=== PATIENT | male | born 2000 | race Caucasian/White ===

== ENCOUNTER 2020-06-07 17:55 | Emergency (ER) | payer SELFPAY ==
[2020-06-07 17:59] VITALS: BP 143/79; PULSE 82; RESP 18; TEMP 37.1; O2SAT 97; BMI 29.5
--- NOTE | 2020-06-07 18:40 | ED_ITS ---
HPI - General Adult General: Chief complaint: General Medical Stated complaint: HAVING PAIN IN R UPPER EXTREMITY SINCE IV 1 WK AGO Time Seen by Provider: 06/07/20 18:00 Source: patient Mode of arrival: ambulatory Limitations: no limitations History of Present Illness: HPI narrative: 19-year-old male patient presents to the emergency department with several complaints. He reports carried a heavy load of dishes yesterday while at work. Reports could barely carry the tray, states someone stepped in front of him causing him to fall. He reports dropped the dishes on the floor. He is complaining of left upper extremity pain today. He also reports history of recent CT scan, completed approximately 7 days ago, with IV contrast due to abdominal pain completed at [facility]. He is wondering if his upper extremity pain today is related to the IV medication he received at the hospital. He reports IV was located in the left upper arm. He states is an [employer] student, not doing well in school, continues to work lots of hours. Employed at [employer]. He reports large amount of anxiety with intention of contacting behavioral health for help past 4 weeks. He denies suicidal/homicidal ideations plans or thoughts. He reports history of anxiety for many years, reports anxiety attacks that are occurring more frequently. Onset (ago): day(s) (1) Location: upper extremity Radiation: back (left) and neck (left) Severity: moderate Severity scale (1-10): 4 Quality: aching and dull Pain Consistency: intermittent Relieving factors: rest Exacerbating factors: medication Associated symptoms: Reports no associated symptoms; Deny chest pain, diaphoresis, dyspnea, headache(s) (worse since school/stress, denies ESPINOZA currently), nausea, rash, palpitations or vomiting Treatments prior to arrival: none Review of Systems General: Reports: 10 or more systems reviewed and unremarkable except in HPI and below Const: Denies: fever(s), chills or diaphoresis Eyes: Denies: blurry vision or eye redness ENMT: Denies: throat pain, dental pain or disequilibrium Card: Denies: chest pain, palpitations or irregular heart rhythm Resp: Denies: dyspnea, productive cough, non-productive cough or wheezing GI: Denies: abdominal pain, nausea or vomiting : Denies: dysuria Musc: Reports: extremity pain; Denies: back pain, joint stiffness or limited range of motion Skin/Breast: Denies: rash or pruritus Neuro: Denies: headache(s), weakness in extremities or behavioral changes Psych: Reports: anxiety and difficulty concentrating; Denies: depression, sleeping more, hopelessness, irritability, visual hallucinations, auditory hallucinations, suicidal ideation or homicidal ideation Ashu/Lymph: Denies: easy bruising PFSH ED PFSH: Social History Smoking and tobacco status: never smoked Physical Exam Const: COMMON NORMALS: no acute distress, patient oriented x3, healthy appearing and alert GENERAL APPEARANCE: cooperative, comfortable and well hydrated HENMT: COMMON NORMALS: normocephalic, Normal external nose present and moist oral mucous membranes HEAD & SCALP: normocephalic NOSE: Normal external nose present Eye: COMMON NORMALS: Equal, round and reactive pupils present and EOMs intact bilaterally GENERAL EYE: appearance normal, both eyes and all related structures PUPIL: Yes Equal, round and reactive pupils present Neck/C-Spine: COMMON NORMALS: full ROM and no lymphadenopathy GENERAL: Yes normal visual inspection and Yes trachea midline CERVICAL SPINE: Yes cervical ROM normal Lymph: LYMPHATIC: no lymphadenopathy noted Chest: COMMONS NORMALS: normal inspection of the chest CHEST: Yes Symmetrical chest wall rise and Yes tenderness other (soft tissue left mid- anterior chest wall, mid-lateral chest wall, pain reproduced with palpation) Resp: COMMON NORMALS: normal respiratory effort and clear to auscultation bilaterally AUSCULTATION: clear to auscultation bilaterally Cardio: COMMON NORMALS: regular rhythm, S1 normal heart sound present, S2 normal heart sound present and Peripheral pulses 2+ throughout RHYTHM: regular rhythm HEART SOUNDS: S1 normal heart sound present and S2 normal heart sound present PERIPHERAL PULSES: Peripheral pulses 2+ throughout GI: COMMON NORMALS: Normal to inspection, nondistended, normoactive bowel sounds present, Soft to palpation and non-tender INSPECTION: Yes normal to inspection PALPATION: Yes Soft to palpation : COMMON NORMALS: Yes no CVA tenderness BLADDER/KIDNEY EXAM: Yes no CVA tenderness Back/Pelvis: COMMON NORMALS: no CVA tenderness, thoracic and lumbar spine normal to inspection, no thoracic nor lumbar tenderness, thoraco-lumbar ROM normal and straight leg raise negative bilaterally Extremity: COMMON NORMALS: normal to inspection and capillary refill normal GENERAL: Yes normal exam except as noted RIGHT UPPER EXTREMITY: Yes shoulder joint (soft tissue tenderness anterior and posterior) Right shoulder: Yes Right shoulder joint inspection exam (normal), Yes palpation, Yes Right shoulder joint ROM exam (full w/o deficit) and Yes Right shoulder joint neurovascular exam (distally intact), Yes upper arm Right upper arm: Yes inspection (normal), Yes palpation (without pain), Yes neurovascular exam (distally intact) and Yes other (no visualization of erythema, tracking, edema or puncture wound) and Yes elbow joint (normal) Right elbow: Yes inspection, Yes palpation (not able to produce tenderness, pronation/supination intact), Yes neurovascular exam (distally intact) and Yes other EXTREMITY IMAGE (BACK): 1. Soft tissue tenderness present, reproducible pain to the posterior scapula, Neuro: COMMON NORMALS: patient oriented x3 and no focal motor deficits SENSORIUM/ORIENTATION: Yes alert SPEECH: speech normal GAIT: Yes Normal gait present MOTOR EXAM: 5/5 motor strength present throughout Psych: COMMON NORMALS: mental status grossly normal, Normal thought process present and cooperative ACTIVITY/MOTOR BEHAVIOR: Yes appropriate eye contact THOUGHT PROCESS: Normal thought process present Skin: COMMON NORMALS: no rashes or lesions noted and turgor normal GENERAL SKIN EXAM: no rashes or lesions noted and turgor normal Course ED course: 19-year-old male patient presents to the emergency department with muscle strain of the left upper extremity. He was concerned IV contrast received approx 1 week prior could correlate with pain he is experiencing. I was not able to appreciate thrombophlebitis or DVT clinical symptoms to the left upper extremity upon exam. Exam consistent with muscle strain. We discussed anxiety symptoms and need for follow-up with behavioral health. He agrees to follow-up and has an action plan with help from his counselor at [facility]. Hydroxyzine given to help with sleep and anxiety symptoms. Is aware this is for short-term treatment only. Prescription of cyclobenzaprine and ibuprofen provided for muscle strain symptoms. He agrees to return to the emergency department if he develops suicidal or homicidal ideations thoughts or plans, depression symptoms. Vital Signs: Vital signs: Vital Signs Temperature 98.8 F 06/07/20 17:59 Pulse Rate 82 06/07/20 17:59 Respiratory Rate 18 06/07/20 17:59 Blood Pressure 143/79 06/07/20 17:59 Pulse Oximetry 97 06/07/20 17:59 Discharge Plan Discharge Patient Disposition: Home Clinical Impression: Anxiety Muscle strain of left upper extremity Qualifiers: Encounter type: initial encounter Qualified Code(s): S46.912A - Strain of unspecified muscle, fascia and tendon at shoulder and upper arm level, left arm, initial encounter Condition: Stable Prescriptions: New IBU 800 mg tablet 800 mg PO TID PRN (Reason: pain) Qty: 30 RF: 0 cyclobenzaprine 10 mg tablet 10 mg PO TID PRN (Reason: muscle spasm) Qty: 15 RF: 0 hydroxyzine HCl 25 mg tablet 25 mg PO Q6H PRN (Reason: anxiety) Qty: 14 RF: 0 Discharge Orders: Discharge Order (Routine); Ordered 06/07/20 Ordered By: Pari Dang Referrals: Bolivar Booth FNP [Primary Care Provider] - Discharge Diet: Usual diet Discharge Activity: Limit activity as instructed Patient Instructions: Muscle Strain (ED), Musculoskeletal Pain (ED), Anxiety (ED) Activity Restrictions/Additional Instructions: Apply warm compresses/cool compresses alternating, several times daily for pain Do not drive with use of cyclobenzaprine Contact student services for counseling with behavioral health tomorrow Take hydroxyzine as needed, may cause drowsiness. Avoid heavy lifting of the left upper extremity until improved. Return to the emergency department if you develop vomiting, fever or other concerning symptoms Return to the emergency department if you develop weakness of the bilateral hands/arms , inability to feel your arms or increased pain of the left upper extremity. 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
--- NOTE | 2020-06-08 15:33 | DCPLANNER ---
Addendum entered by Anna Ross 06/09/20 11:14: Patient returned family caseworker phone call. mergers and acquisitions manager spoke with patient, case loader operator informed him that he could go to [facility] and fill out the initial paperwork between the hours of 7:30 and 3 Monday thru Monday. mergers and acquisitions manager also told patient, that case loader operator would call [facility] and have Michaelle Moe to look for his paperwork, so that a phone assessment could be scheduled for patient. Patient stated that he would go and fill out the paperwork. mergers and acquisitions manager called [facility], spoke with Michaelle, was told that she would look for patients paperwork and would get him scheduled as soon as she could. Original Note: mergers and acquisitions manager had message to speak with patient about getting established with a primary care physician, and about services at [facility]. mergers and acquisitions manager called [phone], unable to speak with patient at this time, a voice mail was left for patient to return family caseworker phone call.
== END 2020-06-07 19:23 | disposition home or self-care (01) ==
PROVIDERS: Emergency Provider Nurse Practitioner Family; PCP Nurse Practitioner Family
DX: S46.912A Strain of unspecified muscle, fascia and tendon at shoulder and upper arm level, left arm, initial encounter (principal); F41.9 Anxiety disorder, unspecified; X50.0XXA Overexertion from strenuous movement or load, initial encounter
CPT/HCPCS: 12345; 99281

== ENCOUNTER 2022-06-01 10:59 | Inpatient (IN) | payer BC, MEDICAID, SELFPAY ==
[2022-06-01 11:33] VITALS: BMI 28.6
[2022-06-01 11:36] VITALS: BP 124/77; PULSE 89; RESP 17; TEMP 36.8; O2SAT 98
[2022-06-01] MEDS: hyDROXYzine 25 mg Capsule 50 MG PO (11:52)
[2022-06-01 14:00] VITALS: BP 115/75; PULSE 80; RESP 15; TEMP 36.8; O2SAT 98
[2022-06-01] MEDS: trazodone 50 mg Tablet PO (20:22)
[2022-06-01 22:00] VITALS: BP 117/72; PULSE 64; RESP 18; TEMP 36.9; O2SAT 96
[2022-06-02 06:00] VITALS: BP 117/72; PULSE 64; RESP 18; TEMP 36.9; O2SAT 96
[2022-06-02 06:36] VITALS: BP 128/79; PULSE 86; RESP 15; TEMP 36.4; O2SAT 98
[2022-06-02] MEDS: hyDROXYzine 25 mg Capsule 50 MG PO (07:55)
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
[2022-06-02 14:00] VITALS: BP 127/55; PULSE 99; RESP 17; TEMP 36.7; O2SAT 99
[2022-06-02] MEDS: trazodone 50 mg Tablet PO ×2 (20:13→22:12)
[2022-06-02] MEDS: famotidine 20 mg Tablet PO (21:48)
[2022-06-02 22:00] VITALS: BP 127/55; PULSE 99; RESP 17; TEMP 36.7; O2SAT 99
[2022-06-02 22:41] VITALS: BP 140/78; PULSE 99; RESP 16; TEMP 36.6; O2SAT 97
[2022-06-03 06:00] VITALS: BP 100/62; PULSE 74; RESP 15; TEMP 36.4; O2SAT 97
--- NOTE | 2022-06-03 08:20 | PC.NURSE ---
Patient denies SI/HI and AVH this morning. Patient identifies as she and will be referred to as such throughout the rest of this note. She states her head feels clearer because it is easier to think in here. Patient is incredibly intelligent and talked about going to college for computer programming and talked extensively about formulas, artificial intelligence, and many other things about her studies. Patient is calm and cooperative this morning.
[2022-06-03] MEDS: escitalopram 10 mg Tablet 20 MG PO (12:58)
[2022-06-03 14:00] VITALS: BP 119/75; PULSE 93; RESP 18; TEMP 36.4; O2SAT 97
--- NOTE | 2022-06-03 15:18 | W.PM.NPUPNS ---
Subjective NPU Subjective: Patient presented today reporting that things were going okay. She she endorsed that it has been a significant struggle essentially hiding her reality from her parents with whom she lives. Also there was a discussion about her having a possibly year-long supply of transitioning supplements in route to her address as well as a limited supply among other things in a locked box at the house. We had a lengthy discussion about the danger of self medicating with prescription medications. And she agreed that she would seek out a licensed practitioner moving forward with any issues surrounding transitioning. Additionally she agreed to increasing the Lexapro to 20 mg p.o. every morning after discussion of the risks, benefits and alternatives of the medication. Mental Status Exam MSE Comments: This is a overweight white transfemale with hospital scrubs on with limited grooming and eye contact. No abnormal movements except for mild psychomotor retardation. Cooperative with exam in mild distress. Speech was more spontaneous but normal rate and slightly decreased volume. Mood described as depressed, affect congruent. Thought process mostly organized. Thought content: Patient denied homicidal ideation but reported recent suicidal ideation, there were no delusions reported but she appeared guarded and somewhat odd, there were no auditory or visual hallucinations reported at this time but she reports a history there of. Attention and concentration were intact and memory appeared somewhat reliable but none were formally tested. She is alert and oriented x3. Insight and judgment are impaired and impulse control is impaired. Vitals/I&O/Wt Last Vital Signs Temp 97.6 F 06/03/22 14:00 Pulse 93 06/03/22 14:00 Resp 18 06/03/22 14:00 BP 119/75 06/03/22 14:00 Pulse Ox 97 06/03/22 14:00 O2 Del Method 06/03/22 06:00 A&P Assessment and plan (1) Generalized anxiety disorder with panic attacks: (2) Major depression, chronic: (3) History of autism: Plan This is a 21-year-old white transfemale with a history of autism, depression and anxiety who presents after recent reported overdose attempt x2. 1. Continue current medication. Increased Lexapro to 20 mg p.o. every morning. 2. Continue every 15 minute checks for safety. 3. Encourage individual, group and milieu therapies. 4. Obtain collateral information. Involuntary Hold Information 96 Hour Hold: 96 Hour Involuntary Admission: No Attestations NPU Medical Necessity Statement*: Inpatient hospitalization is medically necessary and the clinically appropriate intervention at this time. We will monitor/initiate medications and make changes as indicated. Likely to stay 3-5 days. Coding Level of Care Code Acute Frontload Driver for Chg Fwd Diagnoses Generalized anxiety disorder with panic attacks F41.1; F41.0 Major depression, chronic F32.9 History of autism Z86.59
[2022-06-03] MEDS: trazodone 50 mg Tablet PO (20:10)
[2022-06-03 20:24] VITALS: BP 123/78; PULSE 91; RESP 18; O2SAT 97
[2022-06-04 06:00] VITALS: BP 119/74; PULSE 61; RESP 16; O2SAT 99
[2022-06-04] MEDS: escitalopram 10 mg Tablet 20 MG PO (08:07)
--- NOTE | 2022-06-04 08:28 | W.PM.NPUPNS ---
Subjective NPU Subjective: Patient presented today reporting that he feels better partially due to the medications medically and partly due to that being another transgendered individual in the hospital to commiserate with. He denied any side effects medication and we agreed we work with the treatment team on Monday for coping referrals. We spent a significant amount of time importance of having well-trained treatment practitioners involved in any transitioning prescriptions or treatments. Mental Status Exam MSE Comments: This is a overweight white transfemale with hospital scrubs on with limited grooming and eye contact. No abnormal movements except for mild psychomotor retardation. Cooperative with exam in mild distress. Speech was more spontaneous but normal rate and slightly decreased volume. Mood described as a little better, affect congruent. Thought process mostly organized. Thought content: Patient denied homicidal ideation but reported recent suicidal ideation, there were no delusions reported but she appeared guarded and somewhat odd, there were no auditory or visual hallucinations reported at this time but she reports a history there of. Attention and concentration were intact and memory appeared somewhat reliable but none were formally tested. She is alert and oriented x3. Insight and judgment are impaired and impulse control is impaired. Vitals/I&O/Wt Last Vital Signs Temp 97.6 F 06/03/22 14:00 Pulse 61 06/04/22 06:00 Resp 16 06/04/22 06:00 BP 119/74 06/04/22 06:00 Pulse Ox 99 06/04/22 06:00 O2 Del Method 06/03/22 06:00 A&P Assessment and plan (1) Generalized anxiety disorder with panic attacks: (2) Major depression, chronic: (3) History of autism: Plan This is a 21-year-old white transfemale with a history of autism, depression and anxiety who presents after recent reported overdose attempt x2. 1. Continue current medication. Increased Lexapro to 20 mg p.o. every morning. 2. Continue every 15 minute checks for safety. 3. Encourage individual, group and milieu therapies. 4. Obtain collateral information. 5. Work with treatment team for appropriate referrals especially regarding HRT. Involuntary Hold Information 96 Hour Hold: 96 Hour Involuntary Admission: No Attestations NPU Medical Necessity Statement*: Inpatient hospitalization is medically necessary and the clinically appropriate intervention at this time. We will monitor/initiate medications and make changes as indicated. Likely to stay 2 to 4 days. Coding Level of Care Code Acute Road Supervisor Of Engines for Chg Fwd Diagnoses Generalized anxiety disorder with panic attacks F41.1; F41.0 Major depression, chronic F32.9 History of autism Z86.59
[2022-06-04] MEDS: docusate sodium 100 mg Capsule 200 MG PO (09:49)
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
[2022-06-04 14:00] VITALS: BP 132/80; PULSE 90; RESP 20; TEMP 36.7; O2SAT 90
[2022-06-04 20:11] VITALS: BP 123/67; PULSE 102; RESP 18; TEMP 36.9; O2SAT 93
[2022-06-04] MEDS: trazodone 50 mg Tablet PO (20:32)
[2022-06-05 06:00] VITALS: BP 113/59; PULSE 80; RESP 18; TEMP 36.5; O2SAT 94
[2022-06-05] MEDS: escitalopram 10 mg Tablet 20 MG PO (08:41)
[2022-06-05 14:00] VITALS: BP 125/62; PULSE 69; RESP 18; TEMP 36.7; O2SAT 96
--- NOTE | 2022-06-05 16:47 | P.NPUPN_ITS ---
Subjective NPU Subjective: Patient resents today reporting that things are changed medically. His parents came to visit and was identified that they knew about his transgender status. He reports that his needs the now likely has a place to go home to but he is feeling anxious about not being home to have some level co ntrol over the narrative about his transgender status. We discussed the meeting with the treatment team tomorrow to make sure he has appropriate services in place to try to deal with his mental health as well as possible transitioning follow-up. Mental Status Exam MSE Comments: This is a overweight white transfemale with hospital scrubs on with limited grooming and eye contact. No abnormal movements except for mild psychomotor retardation. Cooperative with exam in mild distress. Speech was more spontaneous and normal rate and volume. Mood described as a little better, affect congruent. Thought process mostly organized. Thought content: Patient denied homicidal or suicidal ideation, there were no delusions reported or noted and there were no auditory or visual hallucinations reported at this time. Attention and concentration were intact and memory appeared somewhat reliable but none were formally tested. She is alert and oriented x3. Insight and judgment are limited and impulse control is limited, but improving. Vitals/I&O/Wt Last Vital Signs Temp 97.7 F 06/05/22 06:00 Pulse 80 06/05/22 06:00 Resp 18 06/05/22 06:00 BP 113/59 06/05/22 06:00 Pulse Ox 94 06/05/22 06:00 O2 Del Method 06/04/22 14:00 Weight last 48 hrs Weight 96.706 kg A&P Assessment and plan (1) Generalized anxiety disorder with panic attacks: (2) Major depression, chronic: (3) History of autism: Plan This is a 21-year-old white transfemale with a history of autism, depression and anxiety who presents after recent reported overdose attempt x2. 1. Continue current medication. Increased Lexapro to 20 mg p.o. every morning. 2. Continue every 15 minute checks for safety. 3. Encourage individual, group and milieu therapies. 4. Obtain collateral information. 5. Work with treatment team for appropriate referrals especially regarding HRT. Involuntary Hold Information 96 Hour Hold: 96 Hour Involuntary Admission: No Attestations NPU Medical Necessity Statement*: Inpatient hospitalization is medically necessary and the clinically appropriate intervention at this time. We will monitor/initiate medications and make changes as indicated. Likely to stay 1-3 days. Coding Level of Care Code Acute Motion Graphics Artist for Chg Fwd Diagnoses Generalized anxiety disorder with panic attacks F41.1; F41.0 Major depression, chronic F32.9 History of autism Z86.59
[2022-06-05 20:06] VITALS: BP 115/64; PULSE 61; RESP 17; TEMP 36.8; O2SAT 97
[2022-06-05] MEDS: trazodone 50 mg Tablet PO (20:27)
[2022-06-06 06:00] VITALS: BP 123/72; PULSE 74; RESP 18; O2SAT 100
[2022-06-06] MEDS: escitalopram 10 mg Tablet 20 MG PO (07:20)
[2022-06-06 14:00] VITALS: BP 127/75; PULSE 84; RESP 16; TEMP 36.6; O2SAT 98
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
[2022-06-06 16:07] VITALS: BP 127/75; PULSE 84; RESP 16; TEMP 36.6; O2SAT 98
== END 2022-06-06 17:05 | disposition home or self-care (01) | DRG 880 ==
PROVIDERS: Admitting Provider Psychiatry & Neurology Psychiatry; PCP Family Medicine; Visit Provider Psychiatry & Neurology Psychiatry
DX: F41.1 Generalized anxiety disorder (principal); R45.851 Suicidal ideations; F41.0 Panic disorder [episodic paroxysmal anxiety]; F32.9 Major depressive disorder, single episode, unspecified; F84.0 Autistic disorder; F64.0 Transsexualism; Z91.51 Personal history of suicidal behavior
CPT/HCPCS: 97150; 97165

== ENCOUNTER → 2022-08-05 09:09 | Outpatient (BNVA) | payer BC, SELFPAY | PROVIDERS: PCP Family Medicine; Visit Provider Family Medicine | DX: F64.9 Gender identity disorder, unspecified (principal); F41.1 Generalized anxiety disorder; F41.0 Panic disorder [episodic paroxysmal anxiety]; F32.9 Major depressive disorder, single episode, unspecified | CPT/HCPCS: 80053; 80061; 84146; 84443; 85025 ==

== ENCOUNTER 2022-08-30 14:25 | Inpatient (IN) | payer BC, SELFPAY ==
[2022-08-30 14:27] VITALS: BP 130/64; PULSE 82; RESP 16; TEMP 36.9; O2SAT 96; BMI 30.2
--- NOTE | 2022-08-30 14:45 | ED.C_ITS ---
Documented by User: ANGELA Davidson 08/30/22 16:20 HPI - Psych General: Chief Complaint: Psychiatric Symptoms Stated Complaint: anxiety/MHE Time Seen by Provider: 08/30/22 14:30 Source: patient Mode of arrival: EMS Limitations: no limitations History of Present Illness: Patient is a 22-year-old male with a history of anxiety, depression, and gender dysphoria (biologically male but identifies as female-would like to be referred to [facility]) here for complaints of suicidal ideations and severe anxiety. Patient states he is on Lexapro 20mg daily but does admit to not taking this medication regularly. He states he is having suicidal thoughts with a plan to overdose on medications. He tells me he recently locked up all of his medications because he does not feel safe from myself . Patient reports approximately 1-2 weeks ago he tried to overdose on medications/alcohol but states he miscalculated and did not take a lethal amount. Patient states he is having debilitating anxiety. States he recently had a falling out with a friend/confidant and now feels alone. MD complaint: suicidal ideation, feels depressed and other (anxiety) Onset (ago): day(s) Duration: constant History of same: Yes Context: recent alcohol abuse, not taking psychiatric medications and significant life stressor Associated psychiatric symptoms: depression and suicidal ideation Associated symptoms: Reports depression and suicidal ideation Treatments prior to arrival: none If self harm: admits thoughts of self harm Review of Systems Const: Denies: fever(s) or chills Card: Denies: chest pain, palpitations, lightheadedness or syncope Resp: Denies: dyspnea GI: Denies: abdominal pain, nausea, vomiting or diarrhea Skin/Breast: Denies: rash Neuro: Denies: headache(s) Psych: Reports: anxiety, depression, panic attacks and suicidal ideation PFS ED PFSH: Medical History Psychiatric care Family History Grandfather Stroke Grandmother Cancer skin Father Hypertension Mother Meniere's disease Social History Smoking and tobacco status: never smoked Second hand smoke exposure: No Smoking risk assessment/counseling performed?: No Alcohol intake: former Desire information about alcohol rehabilitation?: No Counseling given: No Desire information about substance/drug rehabilitation?: No Counseling given: No Physical Exam Const: COMMON NORMALS: no acute distress, average body habitus, patient oriented x3, no limitations, healthy appearing, alert and well nourished GENERAL APPEARANCE: cooperative ORIENTATION/CONSCIOUSNESS: Yes awake, Yes oriented to person, Yes oriented to place and Yes oriented to time Resp: COMMON NORMALS: normal respiratory effort and clear to auscultation bilaterally AUSCULTATION: clear to auscultation bilaterally Cardio: COMMON NORMALS: regular rate and regular rhythm RATE: regular rate RHYTHM: regular rhythm Neuro: MONA COMA SCALE: document GCS findings Mona coma scale eye opening: Spontaneous Mona coma scale verbal response: Orientated Mona coma scale motor response: Obey commands [place] coma scale total score: 15 COMMON NORMALS: patient oriented x3 SENSORIUM/ORIENTATION: Yes alert, Yes oriented to person, Yes oriented to place and Yes oriented to time Psych: COMMON NORMALS: mental status grossly normal, Normal thought process present, cooperative, activity/motor behavior normal, denies hallucinations and denies homicidal ideation APPEARANCE: Yes grossly normal ATTITUDE: Yes calm ACTIVITY/MOTOR BEHAVIOR: No psychomotor agitation and Yes Avoids eye contact (attititude/behavior) SPEECH: Yes slow MOOD & AFFECT: Yes depressed mood and Yes Flat affect present THOUGHT PROCESS: Normal thought process present ATTENTION/CONCENTRATION: Yes attention grossly intact and Yes concentration grossly intact MEMORY/COGNITION: Yes memory grossly intact and Yes cognition grossly intact INSIGHT: Good insight present (Psych) JUDGEMENT: Good judgement present (Psych) Course ED course: Affidavit placed on chart. Plan will be to admit to [facility] pending bed availability. Consultations: Consultation #1: Dr. Portillo-accepts to NPU Vital Signs: Vital signs: Vital Signs Temperature 98.4 F 08/30/22 14:27 Pulse Rate 82 08/30/22 14:27 Respiratory Rate 16 08/30/22 14:27 Blood Pressure 130/64 08/30/22 14:27 Pulse Oximetry 96 08/30/22 14:27 Oxygen Delivery Me thod 08/30/22 14:27 MDM - Psych Medical Decision Making Patient will be admitted to NPU per Dr. Portillo. Lab Data 08/30/22 11:55 08/30/22 11:55 Laboratory Results WBC 10.2 10^3/uL (4.0-10.0) H 08/30/22 11:55 RBC 5.55 10^6/uL (4.1-5.3) H 08/30/22 11:55 Hgb 16.7 g/dL (11.7-16.6) H 08/30/22 11:55 Hct 49.0 % (42.0-52.0) 08/30/22 11:55 MCV 88.3 fl (80-94) 08/30/22 11:55 MCH 30.1 pg (28.0-34.0) 08/30/22 11:55 MCHC 34.1 g/dL (30.0-36.0) 08/30/22 11:55 RDW 11.2 % (12.1-15.1) L 08/30/22 11:55 Plt Count 240 10^3/cmm (130-400) 08/30/22 11:55 MPV 10.2 fL (7.4-10.4) 08/30/22 11:55 Neut % (Auto) 72.7 % 08/30/22 11:55 Lymph % (Auto) 20.0 % 08/30/22 11:55 [place] % (Auto) 5.7 % 08/30/22 11:55 Eos % (Auto) 0.5 % 08/30/22 11:55 Baso % (Auto) 0.5 % 08/30/22 11:55 Neut # (Auto) 7.44 10^3/uL (1.8-7.7) 08/30/22 11:55 Lymph # (Auto) 2.1 10^3/uL (0.8-4.8) 08/30/22 11:55 [place] # (Auto) 0.6 10^3/uL (0.2-0.9) 08/30/22 11:55 Eos # (Auto) 0.1 10^3/uL (0.0-0.8) 08/30/22 11:55 Baso # (Auto) 0.1 10^3/uL (0.0-0.1) 08/30/22 11:55 Nucleated RBC % (auto) 0 % 08/30/22 11:55 Nucleated RBCs # 0.0 /100WBC 08/30/22 11:55 Sodium 137 mmol/L (136-145) 08/30/22 11:55 Potassium 3.7 mmol/L (3.5-5.1) 08/30/22 11:55 Chloride 99 mmol/L (98-107) 08/30/22 11:55 Carbon Dioxide 28 mmol/L (22-29) 08/30/22 11:55 Anion Gap 13.7 (5-19) 08/30/22 11:55 BUN 13 mg/dL (6-20) 08/30/22 11:55 Creatinine 0.8 mg/dL (0.7-1.2) 08/30/22 11:55 GFR Calculation 120.9 mL/min (90-130) 08/30/22 11:55 Glucose 93 mg/dL (65-115) 08/30/22 11:55 Calculated Osmolality 284 mOsm/kg (285-295) L 08/30/22 11:55 Calcium 9.4 mg/dL (8.5-10.5) 08/30/22 11:55 Total Bilirubin 0.4 mg/dL (0.15-1.2) 08/30/22 11:55 AST 20 U/L (0-40) 08/30/22 11:55 ALT 28 U/L (0-41) 08/30/22 11:55 Alkaline Phosphatase 86 U/L (40-130) 08/30/22 11:55 Total Protein 8.2 g/dL (6.6-8.7) 08/30/22 11:55 Albumin 5.0 g/dL (3.5-5.2) 08/30/22 11:55 Globulin 3.2 g/dL (1.3-4.6) 08/30/22 11:55 Salicylates < 0.3 mg/dL (3-10) L 08/30/22 11:55 Acetaminophen < 5.0 ug/mL (10-30) L 08/30/22 11:55 Ethyl Alcohol < 10 mg/dL (0-10) 08/30/22 11:55 Discharge Plan Discharge Patient Disposition: Admitted As Inpatient Clinical Impression: Transgender, Major depression, chronic, Gender dysphoria, Suicidal ideation, Acute anxiety Condition: Stable Sign Out Sign Out Data: Patient Sign Out occurred on 08/30/22 at 16:26. Patient's care was discussed, and care was transferred from to Hakeem Guerrero DO. Coding Level of Care Code ED File Keeper for Chg Fwd Documented by User: Hakeem Guerrero DO 08/30/22 16:32 HPI - Psych General: Chief Complaint: Psychiatric Symptoms Stated Complaint: anxiety/MHE Time Seen by Provider: 08/30/22 14:30 PFSH ED PFSH: Medical History Psychiatric care Family History Grandfather Stroke Grandmother Cancer skin Father Hypertension Mother Meniere's disease Social History Smoking and tobacco status: never smoked Second hand smoke exposure: No Smoking risk assessment/counseling performed?: No Alcohol intake: former Desire information about alcohol rehabilitation?: No Counseling given: No Desire information about substance/drug rehabilitation?: No Counseling given: No Physical Exam Neuro: MONA COMA SCALE: document GCS findings Mona coma scale total score: 15 Course Vital Signs: Vital signs: Vital Signs Temperature 98.4 F 08/30/22 14:27 Pulse Rate 82 08/30/22 14:27 Respiratory Rate 16 08/30/22 14:27 Blood Pressure 130/64 08/30/22 14:27 Pulse Oximetry 96 08/30/22 14:27 Oxygen Delivery Me thod 08/30/22 14:27 MDM - Psych Medical Decision Making Patient will be admitted to NPU per Dr. Portillo. Chart reviewed and patient discussed with midlevel. Agree with assessment and plan. Medical Records I reviewed the patient's medical records. Lab Data I reviewed the patient's lab results. 08/30/22 11:55 08/30/22 11:55 Laboratory Results WBC 10.2 10^3/uL (4.0-10.0) H 08/30/22 11:55 RBC 5.55 10^6/uL (4.1-5.3) H 08/30/22 11:55 Hgb 16.7 g/dL (11.7-16.6) H 08/30/22 11:55 Hct 49.0 % (42.0-52.0) 08/30/22 11:55 MCV 88.3 fl (80-94) 08/30/22 11:55 MCH 30.1 pg (28.0-34.0) 08/30/22 11:55 MCHC 34.1 g/dL (30.0-36.0) 08/30/22 11:55 RDW 11.2 % (12.1-15.1) L 08/30/22 11:55 Plt Count 240 10^3/cmm (130-400) 08/30/22 11:55 MPV 10.2 fL (7.4-10.4) 08/30/22 11:55 Neut % (Auto) 72.7 % 08/30/22 11:55 Lymph % (Auto) 20.0 % 08/30/22 11:55 [place] % (Auto) 5.7 % 08/30/22 11:55 Eos % (Auto) 0.5 % 08/30/22 11:55 Baso % (Auto) 0.5 % 08/30/22 11:55 Neut # (Auto) 7.44 10^3/uL (1.8-7.7) 08/30/22 11:55 Lymph # (Auto) 2.1 10^3/uL (0.8-4.8) 08/30/22 11:55 [place] # (Auto) 0.6 10^3/uL (0.2-0.9) 08/30/22 11:55 Eos # (Auto) 0.1 10^3/uL (0.0-0.8) 08/30/22 11:55 Baso # (Auto) 0.1 10^3/uL (0.0-0.1) 08/30/22 11:55 Nucleated RBC % (auto) 0 % 08/30/22 11:55 Nucleated RBCs # 0.0 /100WBC 08/30/22 11:55 Sodium 137 mmol/L (136-145) 08/30/22 11:55 Potassium 3.7 mmol/L (3.5-5.1) 08/30/22 11:55 Chloride 99 mmol/L (98-107) 08/30/22 11:55 Carbon Dioxide 28 mmol/L (22-29) 08/30/22 11:55 Anion Gap 13.7 (5-19) 08/30/22 11:55 BUN 13 mg/dL (6-20) 08/30/22 11:55 Creatinine 0.8 mg/dL (0.7-1.2) 08/30/22 11:55 GFR Calculation 120.9 mL/min (90-130) 08/30/22 11:55 Glucose 93 mg/dL (65-115) 08/30/22 11:55 Calculated Osmolality 284 mOsm/kg (285-295) L 08/30/22 11:55 Calcium 9.4 mg/dL (8.5-10.5) 08/30/22 11:55 Total Bilirubin 0.4 mg/dL (0.15-1.2) 08/30/22 11:55 AST 20 U/L (0-40) 08/30/22 11:55 ALT 28 U/L (0-41) 08/30/22 11:55 Alkaline Phosphatase 86 U/L (40-130) 08/30/22 11:55 Total Protein 8.2 g/dL (6.6-8.7) 08/30/22 11:55 Albumin 5.0 g/dL (3.5-5.2) 08/30/22 11:55 Globulin 3.2 g/dL (1.3-4.6) 08/30/22 11:55 Salicylates < 0.3 mg/dL (3-10) L 08/30/22 11:55 Acetaminophen < 5.0 ug/mL (10-30) L 08/30/22 11:55 Ethyl Alcohol < 10 mg/dL (0-10) 08/30/22 11:55 Discharge Plan Discharge Patient Disposition: Admitted As Inpatient Clinical Impression: Transgender, Major depression, chronic, Gender dysphoria, Suicidal ideation, Acute anxiety Condition: Stable Sign Out Sign Out Data: Patient Sign Out occurred on 08/30/22 at 16:26. Patient's care was discussed, and care was transferred from to Hakeem Guerrero DO. Coding Level of Care Code ED File Keeper for Marina Beaulieu
[2022-08-30 15:15] LABS: Basophils # 0.1 10^3/uL (0.0-0.1); Basophils % 0.5 %; Eosinophils # 0.1 10^3/uL (0.0-0.8); Eosinophils % 0.5 %; Hemoglobin 16.7 g/dL (11.7-16.6); Lymphocytes # 2.1 10^3/uL (0.8-4.8); Mean Corpuscular HGB Conc 34.1 g/dL (30.0-36.0); Mean Corpuscular Hemoglobin 30.1 pg (28.0-34.0); Mean Corpuscular Volume 88.3 fl (80-94); Mean Platelet Volume 10.2 fL (7.4-10.4); Monocytes # 0.6 10^3/uL (0.2-0.9); Monocytes % 5.7 %; Neutrophils # 7.44 10^3/uL (1.8-7.7); Neutrophils % 72.7 %; Nucleated Red Blood Cells % 0 %; Platelet Count 240 10^3/cmm (130-400); Red Blood Count 5.55 10^6/uL (4.1-5.3); Red Cell Distribution Width 11.2 % (12.1-15.1); White Blood Count 10.2 10^3/uL (4.0-10.0)
[2022-08-30 15:41] LABS: Alanine Aminotransferase 28 U/L (0-41); Alkaline Phosphatase 86 U/L (40-130); Anion Gap 13.7 (5-19); Aspartate Amino Transferase 20 U/L (0-40); Blood Urea Nitrogen 13 mg/dL (6-20); Calcium 9.4 mg/dL (8.5-10.5); Carbon Dioxide 28 mmol/L (22-29); Chloride 99 mmol/L (98-107); Globulin 3.2 g/dL (1.3-4.6); Glomerular Filtration Rate 120.9 mL/min (90-130); Glucose 93 mg/dL (65-115); Osmolality Calculated 284 mOsm/kg (285-295); Potassium 3.7 mmol/L (3.5-5.1); Sodium 137 mmol/L (136-145); Total Bilirubin 0.4 mg/dL (0.15-1.2); Total Protein 8.2 g/dL (6.6-8.7)
[2022-08-30 15:47] LABS: Acetaminophen < 5.0 ug/mL (10-30); Alcohol Level < 10 mg/dL (0-10); Salicylate < 0.3 mg/dL (3-10)
[2022-08-30] MEDS: LORazepam 1 mg Tablet PO (16:23)
[2022-08-30 17:13] LABS: Amphetamines Screen Urine Negative (Negative); Barbiturates Screen Urine Negative (Negative); Benzodiazepines Screen Urine Negative (Negative); Cocaine Screen Urine Negative (Negative); Opiate Screen Urine Negative (Negative); PCP Screen Urine Negative (Negative); THC Screen Urine Negative (Negative)
[2022-08-30 20:04] VITALS: BP 126/64; PULSE 67; RESP 14; TEMP 36.8; O2SAT 97
[2022-08-30 20:20] LABS: Bilirubin Urine Neg (Negative); Blood Urine Neg (Negative); Glucose Urine UA Norm (Normal); Ketones Urine Negative (Negative); Leukocyte Esterase Urine Negative (Negative); Nitrate Urine Negative (Negative); Protein Urine Neg (Negative); Urine Appearance Clear (CLEAR); Urine Color Light yellow (Yellow); Urobilinogen Urine Norm (Negative); pH Urine 7 (5-7)
[2022-08-30 20:25] VITALS: BP 124/78; PULSE 71; RESP 20; TEMP 36.5; O2SAT 100
[2022-08-30 20:25] LABS: RBC Urine 0-4 /hpf (0-2)
[2022-08-30 20:26] LABS: Add Urine Culture? No
[2022-08-30 21:39] VITALS: BP 124/78; PULSE 71; RESP 20; TEMP 36.5; O2SAT 100
[2022-08-30] MEDS: trazodone 100 mg Tablet 200 MG PO (22:05)
[2022-08-30] MEDS: hyDROXYzine 25 mg Capsule 50 MG PO (22:06)
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
[2022-08-31 06:00] VITALS: RESP 16
[2022-08-31] MEDS: pantoprazole DR 40 mg Tablet PO (09:15)
[2022-08-31] MEDS: multivitamin therapeutic Tablet 1 TAB PO (09:15)
[2022-08-31] MEDS: cholecalciferol (vitamin D3) 5,000 unit Tablet 5000 UNIT PO (09:15)
[2022-08-31] MEDS: estradiol 1 mg Tablet 3 MG PO (09:15)
[2022-08-31] MEDS: escitalopram 10 mg Tablet 20 MG PO (09:15)
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
[2022-08-31 14:00] VITALS: BP 125/76; PULSE 64; RESP 17; TEMP 36.8; O2SAT 97
[2022-08-31 21:30] VITALS: BP 114/65; PULSE 62; RESP 18; TEMP 36.7; O2SAT 97
[2022-09-01 06:00] VITALS: BP 110/74; PULSE 90; RESP 18; TEMP 36.8; O2SAT 97
[2022-09-01] MEDS: estradiol 1 mg Tablet 3 MG PO (08:40)
[2022-09-01] MEDS: pantoprazole DR 40 mg Tablet PO (08:40)
[2022-09-01] MEDS: multivitamin therapeutic Tablet 1 TAB PO (08:42)
[2022-09-01] MEDS: cholecalciferol (vitamin D3) 5,000 unit Tablet 5000 UNIT PO (08:42)
[2022-09-01] MEDS: escitalopram 10 mg Tablet 30 MG PO (08:55)
--- NOTE | 2022-09-01 12:54 | W.PM.NPUPNS ---
Subjective NPU Subjective: Patient presented today reporting that she is doing okay with the increase in her Lexapro. We discussed the possibility of her having a trial of low-dose Abilify. She continued to be somewhat preoccupied with this idea of a bump or lump in her right breast area. We discussed me reviewing the information with the hospitalist to consider whether something would or could or should be addressed acutely. As some concerns about hormone replacement that we agreed we will discuss with the pharmacy. Mental Status Exam MSE Comments: This is a overweight white transfemale in hospital scrubs on with limited grooming and eye contact. No abnormal movements except for mild psychomotor retardation. Cooperative with exam in mild distress. Speech was limited but decreased rate and volume. Mood described as depressed, affect congruent but odd. Thought process mostly organized. Thought content: Patient denied homicidal ideation but reported recent suicidal ideation, there were no delusions reported but she appeared guarded and somewhat odd, there were no auditory or visual hallucinations reported at this time but she reports a history there of. Attention and concentration were intact and memory appeared unreliable but none were formally tested. She is alert and oriented x3. Insight and judgment are impaired and impulse control is impaired. Vitals/I&O/Wt Last Vital Signs Temp 98.2 F 09/01/22 06:00 Pulse 90 09/01/22 06:00 Resp 18 09/01/22 06:00 BP 110/74 09/01/22 06:00 Pulse Ox 97 09/01/22 06:00 O2 Del Method 09/01/22 06:00 Weight last 48 hrs Weight 98.43 kg Data NPU 08/30/22 11:55 08/30/22 11:55 A&P Assessment and plan (1) Generalized anxiety disorder with panic attacks: (2) Major depression, chronic: (3) History of autism: Plan This is a 22-year-old white transfemale with a history of autism, depression and anxiety who presents again after increasing depression and inability to contract for safety.. 1. Continue current medication. Increased Lexapro to 30 mg p.o. daily and will consider initiating a low-dose Abilify. 2. Continue every 15 minute checks for safety. 3. Encourage individual, group and milieu therapies. 4. Obtain collateral information. We will explore whether a medical consult is necessary for reported left breast pain and possible lump. Involuntary Hold Information 96 Hour Hold: 96 Hour Involuntary Admission: No Attestations NPU Medical Necessity Statement*: Inpatient hospitalization is medically necessary and the clinically appropriate intervention at this time. We will monitor/initiate medications and make changes as indicated. Likely to stay 3-5 days. Coding Level of Care Code Acute Code for Chg Fwd Diagnoses Generalized anxiety disorder with panic attacks F41.1; F41.0 Major depression, chronic F32.9 History of autism Z86.59
[2022-09-01 14:00] VITALS: BP 127/78; PULSE 74; RESP 16; TEMP 36.7; O2SAT 97
[2022-09-01] MEDS: trazodone 100 mg Tablet 200 MG PO (20:54)
[2022-09-01] MEDS: hyDROXYzine 25 mg Capsule 50 MG PO (20:54)
[2022-09-01 21:35] VITALS: BP 123/76; PULSE 71; RESP 18; TEMP 36.6; O2SAT 94
--- NOTE | 2022-09-01 21:55 | PC.NURSE ---
Trazodone 200mg PO and Vistaril 50mg PO given for leep and anxiety with good results.
[2022-09-02] MEDS: multivitamin therapeutic Tablet 1 TAB PO (09:09)
[2022-09-02] MEDS: estradiol 1 mg Tablet 3 MG PO (09:10)
[2022-09-02] MEDS: pantoprazole DR 40 mg Tablet PO (09:10)
[2022-09-02] MEDS: cholecalciferol (vitamin D3) 5,000 unit Tablet 5000 UNIT PO (09:10)
[2022-09-02] MEDS: escitalopram 10 mg Tablet 30 MG PO (09:10)
[2022-09-02 14:00] VITALS: BP 132/88; PULSE 81; RESP 18; TEMP 36.8; O2SAT 98
[2022-09-02 20:29] VITALS: BP 121/78; PULSE 76; RESP 18; TEMP 36.8; O2SAT 97
[2022-09-02] MEDS: trazodone 100 mg Tablet 200 MG PO (20:33)
[2022-09-02] MEDS: OLANZapine 5 mg ODT PO (21:44)
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
[2022-09-03 06:00] VITALS: RESP 16
[2022-09-03] MEDS: escitalopram 10 mg Tablet 30 MG PO (08:45)
[2022-09-03] MEDS: estradiol 1 mg Tablet 3 MG PO (08:46)
[2022-09-03] MEDS: multivitamin therapeutic Tablet 1 TAB PO (08:47)
[2022-09-03] MEDS: cholecalciferol (vitamin D3) 5,000 unit Tablet 5000 UNIT PO (08:47)
[2022-09-03] MEDS: pantoprazole DR 40 mg Tablet PO (08:47)
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
[2022-09-03 11:44] VITALS: BP 112/72; PULSE 88; RESP 16
== END 2022-09-03 12:00 | disposition home or self-care (01) | DRG 880 ==
LOC: ER 16:26 → NP 20:09
PROVIDERS: Physician Assistant; Admitting Provider Psychiatry & Neurology Psychiatry; Emergency Provider Family Medicine; PCP Family Medicine; Visit Provider Psychiatry & Neurology Psychiatry
DX: F41.1 Generalized anxiety disorder (principal); R45.851 Suicidal ideations; F32.9 Major depressive disorder, single episode, unspecified; F41.0 Panic disorder [episodic paroxysmal anxiety]; F64.0 Transsexualism; Z91.14 Patient's other noncompliance with medication regimen; F84.0 Autistic disorder
CPT/HCPCS: 36415; 80053; 80306; 80307; 81001; 85025; 97150; 97165; 99238; 99285; J8499

== ENCOUNTER 2022-11-25 15:45 | Inpatient (IN) | payer BC, SELFPAY ==
[2022-11-25 15:47] VITALS: BP 122/63; PULSE 67; TEMP 36.7
--- NOTE | 2022-11-25 16:09 | ED.C_ITS ---
Documented by User: ANGELA Mueller 11/25/22 16:50 HPI - Psych General: Chief Complaint: Psychiatric Symptoms Stated Complaint: SI Time Seen by Provider: 11/25/22 15:59 History of Present Illness: Patient is a 22-year-old male who comes to the ED with SI. Patient has a history of gender dysphoria and depression. Patient has been hospitalized in the past for SI. He has been having increased thoughts of SI but over the past couple days and today he got into a fight with his parents due to his gender transitioning. He states that he has been having a lot of fights with his parents lately. He denies any plan for SI and denies any HI. Patient says he is on Lexapro that he takes to help with his depression. Denies any auditory visual hallucinations. He does admit to being a heavy alcohol use over the past several weeks. Denies any recent drug use. Associated symptoms: Reports depression and suicidal ideation; Deny auditory hallucinations, visual hallucinations or homicidal ideation Review of Systems Const: Denies: fever(s), chills or fatigue Eyes: Denies: change in vision or eye discomfort ENMT: Denies: throat pain, odynophagia, nasal discharge or nasal congestion Card: Denies: chest pain, palpitations, edema, swelling of feet/ankles, dyspnea on exertion or orthopnea Resp: Denies: dyspnea, productive cough or non-productive cough GI: Denies: abdominal pain, nausea, vomiting, diarrhea, constipation or hematochezia : Denies: flank pain, difficulty urinating, dysuria or hematuria Musc: Denies: neck pain, back pain or extremity swelling Skin/Breast: Denies: rash or new lesions Neuro: Denies: headache(s), numbness in extremities or weakness in extremities Psych: Reports: anxiety, depression and suicidal ideation; Denies: visual hallucinations, auditory hallucinations or homicidal ideation PFS ED PFSH: Medical History Psychiatric care Family History Grandfather Stroke Grandmother Cancer skin Father Hypertension Mother Meniere's disease Social History Smoking and tobacco status: never smoked Second hand smoke exposure: No Smoking risk assessment/counseling performed?: No Alcohol intake: former Desire information about alcohol rehabilitation?: No Counseling given: No Substance/Drug Use: current Substance/Drug use frequency: few times a week Other substance/drug use details: vape pen Desire information about substance/drug rehabilitation?: No Counseling given: No Physical Exam Const: COMMON NORMALS: patient oriented x3 and alert GENERAL APPEARANCE: cooperative HENMT: COMMON NORMALS: normocephalic HEAD & SCALP: normocephalic MOUTH: Normal oral and palatal mucosa present THROAT: posterior oropharynx normal and uvula midline Neck/C-Spine: COMMON NORMALS: supple GENERAL: Yes normal visual inspection Resp: COMMON NORMALS: normal respiratory effort, No retractions, No use of accessory muscles and clear to auscultation bilaterally AUSCULTATION: clear to auscultation bilaterally Cardio: COMMON NORMALS: regular rate, regular rhythm, S1 normal heart sound present, S2 normal heart sound present, No gallops present (Cardio), No clicks present (Cardio), No murmurs present (Cardio) and Peripheral pulses 2+ throughout RATE: regular rate RHYTHM: regular rhythm HEART SOUNDS: S1 normal heart sound present and S2 normal heart sound present PERIPHERAL PULSES: Peripheral pulses 2+ throughout GI: COMMON NORMALS: Normal to inspection, nondistended, normoactive bowel sounds present, Soft to palpation, non-tender and no masses PALPATION: Yes Soft to palpation : COMMON NORMALS: Yes no CVA tenderness BLADDER/KIDNEY EXAM: Yes no CVA tenderness Back/Pelvis: COMMON NORMALS: no CVA tenderness Extremity: COMMON NORMALS: normal to inspection Neuro: COMMON NORMALS: patient oriented x3 SENSORIUM/ORIENTATION: Yes alert GAIT: Yes Normal gait present Psych: COMMON NORMALS: mental status grossly normal, cooperative and speech normal ATTITUDE: Yes calm ACTIVITY/MOTOR BEHAVIOR: Yes appropriate eye contact SPEECH: Yes normal speech MOOD & AFFECT: Yes depressed mood THOUGHT CONTENT: Yes Suicidality present, No Homicidality present and No Hallucination(s) present Skin: GENERAL SKIN EXAM: dry skin Course Vital Signs: Vital signs: Vital Signs Temperature 98.1 F 11/25/22 15:47 Pulse Rate 67 11/25/22 15:47 Blood Pressure 122/63 11/25/22 15:47 Oxygen Delivery Me thod Room Air 11/25/22 15:47 [facility] - Psych Medical Decision Making Patient is a 22-year-old male comes to the ED with SI. He was medically cleared here in the ED and I contacted Dr. Portillo and he accepts admission of patient into the N[facility]. Dr. Guerrero will be placing the admitting orders. Lab Data I reviewed the patient's lab results. 11/25/22 17:15 11/25/22 17:15 Laboratory Results WBC 17.0 10^3/uL (4.0-10.0) H 11/25/22 17:15 RBC 4.65 10^6/uL (4.1-5.3) 11/25/22 17:15 Hgb 14.1 g/dL (11.7-16.6) 11/25/22 17:15 Hct 41.6 % (42.0-52.0) L 11/25/22 17:15 MCV 89.5 fl (80-94) 11/25/22 17:15 MCH 30.3 pg (28.0-34.0) 11/25/22 17:15 MCHC 33.9 g/dL (30.0-36.0) 11/25/22 17:15 RDW 11.8 % (12.1-15.1) L 11/25/22 17:15 Plt Count 240 10^3/cmm (130-400) 11/25/22 17:15 MPV 10.0 fL (7.4-10.4) 11/25/22 17:15 Neut % (Auto) 84.8 % 11/25/22 17:15 Lymph % (Auto) 7.9 % 11/25/22 17:15 [place] % (Auto) 6.4 % 11/25/22 17:15 Eos % (Auto) 0.2 % 11/25/22 17:15 Baso % (Auto) 0.2 % 11/25/22 17:15 Neut # (Auto) 14.41 10^3/uL (1.8-7.7) H 11/25/22 17:15 Lymph # (Auto) 1.4 10^3/uL (0.8-4.8) 11/25/22 17:15 [place] # (Auto) 1.1 10^3/uL (0.2-0.9) H 11/25/22 17:15 Eos # (Auto) 0.0 10^3/uL (0.0-0.8) 11/25/22 17:15 Baso # (Auto) 0.0 10^3/uL (0.0-0.1) 11/25/22 17:15 Nucleated RBC % (auto) 0 % 11/25/22 17:15 Nucleated RBCs # 0.0 /100WBC 11/25/22 17:15 Urine Color Yellow (Yellow) 11/25/22 16:00 Urine Appearance Clear (CLEAR) 11/25/22 16:00 Urine pH 7 (5-7) 11/25/22 16:00 Ur Specific [place] 1.015 (1.005-1.030) 11/25/22 16:00 Urine Protein Neg (Negative) 11/25/22 16:00 Urine Glucose (UA) Norm (Normal) 11/25/22 16:00 Urine Ketones 1+ (Negative) H 11/25/22 16:00 Urine Blood Neg (Negative) 11/25/22 16:00 Urine Nitrate Negative (Negative) 11/25/22 16:00 Urine Bilirubin Neg (Negative) 11/25/22 16:00 Urine Urobilinogen 1 mg/dL (Negative) H 11/25/22 16:00 Ur Leukocyte Esterase Negative (Negative) 11/25/22 16:00 Urine Opiates Screen Negative ng/mL (Negative) 11/25/22 16:00 Ur Barbiturates Screen Negative ng/mL (Negative) 11/25/22 16:00 Ur Phencyclidine Scrn Negative ng/mL (Negative) 11/25/22 16:00 Ur Amphetamines Screen Negative ng/mL (Negative) 11/25/22 16:00 U Benzodiazepines Scrn Negative ng/mL (Negative) 11/25/22 16:00 Urine Cocaine Screen Negative ng/mL (Negative) 11/25/22 16:00 U Marijuana (THC) Screen Positive ng/mL (Negative) H 11/25/22 16:00 Discharge Plan Discharge Patient Disposition: Admitted As Inpatient Clinical Impression: Suicidal ideation Condition: Stable Coding Level of Care Code ED Legal Practice Manager for Marina Fwd Documented by User: Hakeem Guerrero DO 11/25/22 17:45 HPI - Psych General: Chief Complaint: Psychiatric Symptoms Stated Complaint: SI Time Seen by Provider: 11/25/22 15:59 PFSH ED PFSH: Medical History Psychiatric care Family History Grandfather Stroke Grandmother Cancer skin Father Hypertension Mother Meniere's disease Social History Smoking and tobacco status: never smoked Second hand smoke exposure: No Smoking risk assessment/counseling performed?: No Alcohol intake: former Desire information about alcohol rehabilitation?: No Counseling given: No Substance/Drug Use: current Substance/Drug use frequency: few times a week Other substance/drug use details: vape pen Desire information about substance/drug rehabilitation?: No Counseling given: No Course Vital Signs: Vital signs: Vital Signs Temperature 98.1 F 11/25/22 15:47 Pulse Rate 67 11/25/22 15:47 Blood Pressure 122/63 11/25/22 15:47 Oxygen Delivery Me thod Room Air 11/25/22 15:47 MDM - Psych Medical Decision Making Patient is a 22-year-old male comes to the ED with SI. He was medically cleared here in the ED and I contacted Dr. Portillo and he accepts admission of patient into the [facility]. Dr. Guerrero will be placing the admitting orders. Chart reviewed and patient discussed with midlevel. Agree with assessment and plan. Patient seen and evaluated. History consistent with what is documented Ann Michael. Orders written Lab Data 11/25/22 17:15 11/25/22 17:15 Laboratory Results WBC 17.0 10^3/uL (4.0-10.0) H 11/25/22 17:15 RBC 4.65 10^6/uL (4.1-5.3) 11/25/22 17:15 Hgb 14.1 g/dL (11.7-16.6) 11/25/22 17:15 Hct 41.6 % (42.0-52.0) L 11/25/22 17:15 MCV 89.5 fl (80-94) 11/25/22 17:15 MCH 30.3 pg (28.0-34.0) 11/25/22 17:15 MCHC 33.9 g/dL (30.0-36.0) 11/25/22 17:15 RDW 11.8 % (12.1-15.1) L 11/25/22 17:15 Plt Count 240 10^3/cmm (130-400) 11/25/22 17:15 MPV 10.0 fL (7.4-10.4) 11/25/22 17:15 Neut % (Auto) 84.8 % 11/25/22 17:15 Lymph % (Auto) 7.9 % 11/25/22 17:15 [place] % (Auto) 6.4 % 11/25/22 17:15 Eos % (Auto) 0.2 % 11/25/22 17:15 Baso % (Auto) 0.2 % 11/25/22 17:15 Neut # (Auto) 14.41 10^3/uL (1.8-7.7) H 11/25/22 17:15 Lymph # (Auto) 1.4 10^3/uL (0.8-4.8) 11/25/22 17:15 [place] # (Auto) 1.1 10^3/uL (0.2-0.9) H 11/25/22 17:15 Eos # (Auto) 0.0 10^3/uL (0.0-0.8) 11/25/22 17:15 Baso # (Auto) 0.0 10^3/uL (0.0-0.1) 11/25/22 17:15 Nucleated RBC % (auto) 0 % 11/25/22 17:15 Nucleated RBCs # 0.0 /100WBC 11/25/22 17:15 Urine Color Yellow (Yellow) 11/25/22 16:00 Urine Appearance Clear (CLEAR) 11/25/22 16:00 Urine pH 7 (5-7) 11/25/22 16:00 Ur Specific [place] 1.015 (1.005-1.030) 11/25/22 16:00 Urine Protein Neg (Negative) 11/25/22 16:00 Urine Glucose (UA) Norm (Normal) 11/25/22 16:00 Urine Ketones 1+ (Negative) H 11/25/22 16:00 Urine Blood Neg (Negative) 11/25/22 16:00 Urine Nitrate Negative (Negative) 11/25/22 16:00 Urine Bilirubin Neg (Negative) 11/25/22 16:00 Urine Urobilinogen 1 mg/dL (Negative) H 11/25/22 16:00 Ur Leukocyte Esterase Negative (Negative) 11/25/22 16:00 Urine Opiates Screen Negative ng/mL (Negative) 11/25/22 16:00 Ur Barbiturates Screen Negative ng/mL (Negative) 11/25/22 16:00 Ur Phencyclidine Scrn Negative ng/mL (Negative) 11/25/22 16:00 Ur Amphetamines Screen Negative ng/mL (Negative) 11/25/22 16:00 U Benzodiazepines Scrn Negative ng/mL (Negative) 11/25/22 16:00 Urine Cocaine Screen Negative ng/mL (Negative) 11/25/22 16:00 U Marijuana (THC) Screen Positive ng/mL (Negative) H 11/25/22 16:00 Discharge Plan Discharge Patient Disposition: Admitted As Inpatient Clinical Impression: Suicidal ideation Condition: Stable Coding Level of Care Code ED Legal Practice Manager for Marina Beaulieu
[2022-11-25 16:23] LABS: Add Urine Microscopic? NO; Charge for UA Resulting for Rev
[2022-11-25 16:35] LABS: Bilirubin Urine Neg (Negative); Blood Urine Neg (Negative); Glucose Urine UA Norm (Normal); Ketones Urine 1+ (Negative); Leukocyte Esterase Urine Negative (Negative); Nitrate Urine Negative (Negative); Protein Urine Neg (Negative); Specific Gravity, Urine 1.015 (1.005-1.030); Urine Appearance Clear (CLEAR); Urine Color Yellow (Yellow); Urobilinogen Urine 1 mg/dL (Negative); pH Urine 7 (5-7)
[2022-11-25 16:44] LABS: Amphetamines Screen Urine Negative (Negative); Barbiturates Screen Urine Negative (Negative); Benzodiazepines Screen Urine Negative (Negative); Cocaine Screen Urine Negative (Negative); Opiate Screen Urine Negative (Negative); PCP Screen Urine Negative (Negative); THC Screen Urine Positive (Negative)
[2022-11-25] MEDS: LORazepam 1 mg Tablet PO (17:00)
[2022-11-25 17:22] LABS: Basophils % 0.2 %; Eosinophils % 0.2 %; Hematocrit 41.6 % (42.0-52.0); Hemoglobin 14.1 g/dL (11.7-16.6); Lymphocytes # 1.4 10^3/uL (0.8-4.8); Lymphocytes % 7.9 %; Mean Corpuscular HGB Conc 33.9 g/dL (30.0-36.0); Mean Corpuscular Hemoglobin 30.3 pg (28.0-34.0); Mean Corpuscular Volume 89.5 fl (80-94); Monocytes # 1.1 10^3/uL (0.2-0.9); Monocytes % 6.4 %; Neutrophils # 14.41 10^3/uL (1.8-7.7); Neutrophils % 84.8 %; Nucleated Red Blood Cells % 0 %; Platelet Count 240 10^3/cmm (130-400); Red Blood Count 4.65 10^6/uL (4.1-5.3); Red Cell Distribution Width 11.8 % (12.1-15.1)
[2022-11-25 17:50] LABS: Alanine Aminotransferase 20 U/L (0-41); Albumin Level 4.6 g/dL (3.5-5.2); Alkaline Phosphatase 85 U/L (40-130); Anion Gap 12.7 (5-19); Aspartate Amino Transferase 17 U/L (0-40); Blood Urea Nitrogen 10 mg/dL (6-20); Calcium 9.3 mg/dL (8.5-10.5); Carbon Dioxide 26 mmol/L (22-29); Chloride 103 mmol/L (98-107); Globulin 2.6 g/dL (1.3-4.6); Glomerular Filtration Rate 120.9 mL/min (90-130); Glucose 95 mg/dL (65-115); Osmolality Calculated 285 mOsm/kg (285-295); Potassium 3.7 mmol/L (3.5-5.1); Sodium 138 mmol/L (136-145); Total Bilirubin 0.5 mg/dL (0.15-1.2); Total Protein 7.2 g/dL (6.6-8.7)
[2022-11-25 17:55] LABS: Acetaminophen < 5.0 ug/mL (10-30); Alcohol Level < 10 mg/dL (0-10); Salicylate < 0.3 mg/dL (3-10)
[2022-11-25 21:56] VITALS: BP 102/53; PULSE 71; RESP 18; TEMP 37; O2SAT 98
[2022-11-26 06:00] VITALS: RESP 16
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
[2022-11-26] MEDS: hyDROXYzine 25 mg Capsule 50 MG PO (13:50)
[2022-11-26 14:00] VITALS: BP 132/94; PULSE 74; RESP 18; TEMP 36.9; O2SAT 96
[2022-11-26 21:25] VITALS: BP 102/67; PULSE 50; RESP 16; TEMP 36.4; O2SAT 97
[2022-11-26] MEDS: mirtazapine 15 mg Tablet PO (22:04)
[2022-11-27 06:00] VITALS: RESP 18
[2022-11-27 14:00] VITALS: BP 121/74; PULSE 76; RESP 16; TEMP 37; O2SAT 100
--- NOTE | 2022-11-27 16:10 | PC.NURSE ---
out on the patio for group therapy
--- NOTE | 2022-11-27 17:44 | P.NPUPN_ITS ---
Subjective NPU Subjective: Patient is a 22-year-old transfemale patient presented to the NPU with depression and suicidal ideation. Patient had reported an extended history of depression. She reports that she had been on various antidepressants in the past including Lexapro without improvement. She had reported that over the past 4 months she had struggled with managing her mood as this had also in the time when she had been taking several medications to help her with gender transitioning as she had been born a biological male. She had reported periods of depressed mood feelings of hopelessness and periods of sadness. She also reported having been diagnosed with autism and endorsed a past history of diffic ulties with social engagement with age-appropriate peers, history of social isolation restricted areas of interest and difficulties with tolerating changes in routine. She had reported that she had not started her complete regimen of medications yet for gender transitioning while here on the unit. Mental Status Exam MSE Comments: This is a overweight white transfemale in hospital scrubs on with limited grooming and poor eye contact. No abnormal movements except for mild psychomotor retardation. Cooperative with exam in mild distress. Speech was limited but decreased rate, monotone in quality and normal volume. Mood described as depressed. Affect was flat. Thought process mostly organized. Thought content: Patient denied homicidal ideation but reported recent suicidal ideation, there were no delusions reported. She did not appear to be responding to internal stimuli. There was no evidence of overvalued ideas. There were no auditory or visual hallucinations reported at this time. Attention and concentration appeared adequate and within normal limits. She is alert and or iented x3. Insight and judgment are impaired and impulse control is impaired. Vitals/I&O/Wt Last Vital Signs Temp 98.6 F 11/27/22 14:00 Pulse 76 11/27/22 14:00 Resp 16 11/27/22 14:00 BP 121/74 11/27/22 14:00 Pulse Ox 100 11/27/22 14:00 O2 Del Method Room Air 11/26/22 14:00 Data NPU 11/25/22 17:15 11/25/22 17:15 A&P Assessment and plan (1) Generalized anxiety disorder with panic attacks: (2) Major depression, chronic: (3) History of autism: Plan This is a 22-year-old white transfemale with a history of autism, depression and anxiety who presents again after increasing depression and inability to contract for safety. 1. Continue current medication. Increase Remeron 30mg at night. 2. Continue every 15 minute checks for safety. 3. Encourage individual, group and milieu therapies. 4. Obtain collateral information. Involuntary Hold Information 96 Hour Hold: 96 Hour Involuntary Admission: No Attestations NPU Medical Necessity Statement*: Inpatient hospitalization is medically necessary and the clinically appropriate intervention at this time. We will monitor/initiate medications and make changes as indicated. She will be in the hospital for over 2 midnights. Likely to stay 4 to 6 days. Coding Level of Care Code Acute Code for g Fwd Diagnoses Generalized anxiety disorder with panic attacks F41.1; F41.0 Major depression, chronic F32.9 History of autism Z86.59
[2022-11-27] MEDS: mirtazapine 15 mg Tablet PO (19:45)
[2022-11-27 20:15] VITALS: BP 116/76; PULSE 86; RESP 18; TEMP 36.8; O2SAT 97
[2022-11-28 06:00] VITALS: RESP 16
--- NOTE | 2022-11-28 09:28 | W.PM.NPUPNS ---
Subjective NPU Subjective: Patient is a 22-year-old transfemale patient presented to the NPU with depression and suicidal ideation. The patient continue to report suicidal thoughts and stated that she continued to dread going home stating that nothing had changed at this time. She reports that she continues to feel hopeless about her outcome. She had reported no improvement with the Lexapro at doses up to 30 mg and stated that she had not been feeling any better yet with her mirtazapine 50 mg at night. She had reported having continued problems with concentration and stated that she struggled with keeping her mind on other things as she had continued to report feeling upset at discrimination that was occurring both at home and at work. She had reported that she would like to consider living in her another place rather than moving back with her parents due to their lack of understanding regarding the nature of her gender related issues. Patient had reported difficulties falling asleep without the trazodone at a higher dose. She continued to isolate herself on the milieu and stated that she was struggling with being here despite feeling like she was going to kill herself if she were to return home. Mental Status Exam MSE Comments: This is a overweight white transfemale in hospital scrubs on with limited grooming and poor eye contact. No abnormal movements except for mild psychomotor retardation. Cooperative with exam in moderate distress today. Speech was monotone with normal rate and volume. Mood described as depressed. Affect remained flat. Thought process was linear and organized. Thought content: Patient denied homicidal ideation and reported suicidal thoughts with a plan to overdose. She did not appear to be responding to internal stimuli. There was no evidence of overvalued ideas. There were no auditory or visual hallucinations reported at this time. Attention and concentration appeared adequate and within normal limits. She is alert and oriented x3. Insight and judgment are impaired and impulse control is impaired. Vitals/I&O/Wt Last Vital Signs Temp 98.3 F 11/27/22 20:15 Pulse 86 11/27/22 20:15 Resp 16 11/28/22 06:00 BP 116/76 11/27/22 20:15 Pulse Ox 97 11/27/22 20:15 O2 Del Method Room Air 11/27/22 20:15 Weight last 48 hrs Weight 99.7 kg Data NPU 11/25/22 17:15 11/25/22 17:15 A&P Assessment and plan (1) Generalized anxiety disorder with panic attacks: (2) Major depression, chronic: (3) History of autism: Plan This is a 22-year-old white transfemale with a history of autism, depression and anxiety who presents again after increasing depression and inability to contract for safety. 1. Continue current medications, add Abilify to target depression along with Remeron increase to 30mg at night. Restarting gender transition medications. Estrogen, DHT-Finasteride. 2. Continue every 15 minute checks for safety. 3. Encourage individual, group and milieu therapies. 4. Care Home as disposition option? Involuntary Hold Information 96 Hour Hold: 96 Hour Involuntary Admission: No Attestations NPU Medical Necessity Statement*: Inpatient hospitalization is medically necessary and the clinically appropriate intervention at this time. We will monitor/initiate medications and make changes as indicated. She will be in the hospital for over 2 midnights. Likely to stay 4 to 6 days. Coding Level of Care Code Acute Code for [facility] Fwd Diagnoses Generalized anxiety disorder with panic attacks F41.1; F41.0 Major depression, chronic F32.9 History of autism Z86.59
[2022-11-28] MEDS: pantoprazole DR 40 mg Tablet PO (10:01)
--- NOTE | 2022-11-28 10:20 | PC.NURSE ---
attended Goals group at 0930
[2022-11-28] MEDS: finasteride 5 mg Tablet 2.5 MG PO (13:29)
[2022-11-28] MEDS: estradiol 1 mg Tablet 3 MG PO (13:29)
[2022-11-28 14:00] VITALS: BP 133/74; PULSE 87; RESP 20; TEMP 36.3; O2SAT 98
[2022-11-28 21:12] VITALS: BP 134/76; PULSE 82; RESP 18; TEMP 36.2; O2SAT 99
[2022-11-28] MEDS: mirtazapine 15 mg Tablet 30 MG PO (21:48)
[2022-11-29 06:00] VITALS: RESP 16
[2022-11-29] MEDS: ARIPiprazole 2 mg Tablet PO ×2 (08:36→13:54)
[2022-11-29] MEDS: estradiol 1 mg Tablet 3 MG PO (08:36)
[2022-11-29] MEDS: pantoprazole DR 40 mg Tablet PO (08:36)
[2022-11-29] MEDS: finasteride 5 mg Tablet 2.5 MG PO (09:13)
--- NOTE | 2022-11-29 11:14 | W.PM.NPUPNS ---
Subjective NPU Subjective: Patient is a 22-year-old transfemale patient presented to the NPU with depression and suicidal ideation. The patient had indicated that he had been frustrated with all of those people in his life that had continued to be opposed to his gender transition. 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 The patient's family members have mentioned to the social and human services assistant here that they were concerned that the patient had made vague references about attempting to harm his teacher. The patient had reported that he had no intention of harming this person and had not seen this person in several years. He had reported that his general feelings about the matter was that he had been frustrated and may struggle with controlling his anger. He reports having no access to guns or weapons. He reports that he feels that he would like to live outside of his parents home and began a new with his treatment. He had expressed desire to consider other modalities of treating his chronic depression. He had reported no side effects from the mirtazapine or Abilify at this time. Patient remained isolative on the milieu. He had acknowledged that he had a hard time with managing previous negative statements made towards him in the past but states that he was trying to remain optimistic. He had reported adequate sleep last night. Mental Status Exam MSE Comments: This is a overweight white transfemale in hospital scrubs on with limited grooming and poor eye contact. No abnormal movements other than mild psychomotor retardation. He was cooperative with exam in moderate distress today. Speech was monotone with normal rate and volume. Mood described as okay.. Affect remained flat. Thought process was linear and organized. Thought content: Patient denied homicidal ideation or suicidal ideation. She did not appear to be responding to internal stimuli. There was no evidence of overvalued ideas. There were no auditory or visual hallucinations reported at this time. Attention and concentration appeared adequate and within normal limits. She is alert and oriented x3. Insight and judgment are poor but improving and impulse control is impaired. Vitals/I&O/Wt Last Vital Signs Temp 97.2 F L 11/28/22 21:12 Pulse 82 11/28/22 21:12 Resp 16 11/29/22 06:00 BP 134/76 11/28/22 21:12 Pulse Ox 99 11/28/22 21:12 O2 Del Method Room Air 11/27/22 20:15 Weight last 48 hrs Weight 99.7 kg Data NPU 11/25/22 17:15 11/25/22 17:15 A&P Assessment and plan (1) Generalized anxiety disorder with panic attacks: (2) Major depression, chronic: (3) History of autism: Plan This is a 22-year-old white transfemale with a history of autism, depression and anxiety who presents again after increasing depression and inability to contract for safety. 1. Continue current medications,Increase abilify to 5mg daily to target depression along with Remeron at 30mg at night. Restarted gender transition medications. Estrogen, DHT-Finasteride. Discussed in detail other long term care administrator options to target depression including Spravato and TMS. 2. Continue every 15 minute checks for safety. 3. Encourage individual, group and milieu therapies. 4. [facility] as disposition option? Involuntary Hold Information 96 Hour Hold: 96 Hour Involuntary Admission: No Attestations NPU Medical Necessity Statement*: Inpatient hospitalization is medically necessary and the clinically appropriate intervention at this time. We will monitor/initiate medications and make changes as indicated. Her likely length of stay is 4 to 6 days. Coding Level of Care Code Acute Code for [facility] Fwd Diagnoses Generalized anxiety disorder with panic attacks F41.1; F41.0 Major depression, chronic F32.9 History of autism Z86.59
[2022-11-29 14:00] VITALS: BP 100/63; PULSE 83; RESP 18; TEMP 36.9; O2SAT 97
[2022-11-29] MEDS: mirtazapine 15 mg Tablet 30 MG PO (20:19)
[2022-11-29 22:00] VITALS: BP 148/33; PULSE 77; RESP 18; TEMP 37; O2SAT 97
[2022-11-30 06:00] VITALS: RESP 16
[2022-11-30] MEDS: estradiol 1 mg Tablet 3 MG PO (08:53)
[2022-11-30] MEDS: pantoprazole DR 40 mg Tablet PO (08:54)
[2022-11-30] MEDS: finasteride 5 mg Tablet 2.5 MG PO (08:54)
[2022-11-30] MEDS: ARIPiprazole 10 mg Tablet 5 MG PO (08:54)
--- NOTE | 2022-11-30 13:37 | W.PM.NPUPNS ---
Subjective NPU Subjective: Patient is a 22-year-old transfemale patient presented to the NPU with depression and suicidal ideation. The patient continued to express intermittent suicidal thoughts and had reported to his brother on the phone that he may try to overdose on his medications if he were to be discharged. He appeared to be anxious about residing by himself. He had reported a sense of hopelessness. Staff notes patient had continued to isolate himself on the milieu. He had reported having difficulties with falling asleep. He had continued to struggle with being able to manage repeated intrusive thoughts regarding past negative comments made to him by family members coworkers and teachers throughout his life regarding his transgender status. He had reported that he would like to continue with more intensive therapy and stated that he may benefit from being in [place]. The patient had endorsed that his depression had been more prominent over the past 9 months and he had less resilience recently. Mental Status Exam MSE Comments: This is a overweight white transfemale in hospital scrubs on with limited grooming and poor eye contact. No abnormal movements other than moderate psychomotor retardation. He was cooperative with exam in significant distress again today. Speech was monotone with normal rate and volume. Mood described as not so good . Affect was restricted in range and mood-congruent. Thought process was linear and organized. Thought content: Patient he denied current homicidal ideation but endorsed fleeting suicidal thoughts. She did not appear to be responding to internal stimuli. There was no evidence of overvalued ideas. There were no auditory or visual hallucinations reported at this time. Attention and concentration appeared adequate and within normal limits. She is alert and oriented x3. Insight was poor and judgment is poor. Cognitive rigidity appreciated on interview. Vitals/I&O/Wt Last Vital Signs Temp 98.6 F 11/29/22 22:00 Pulse 77 11/29/22 22:00 Resp 16 11/30/22 06:00 BP 148/33 11/29/22 22:00 Pulse Ox 97 11/29/22 22:00 O2 Del Method Room Air 11/29/22 22:00 Data NPU 11/25/22 17:15 11/25/22 17:15 A&P Assessment and plan (1) Generalized anxiety disorder with panic attacks: (2) Major depression, chronic: (3) History of autism: Plan This is a 22-year-old white transfemale with a history of autism, depression and anxiety who presents again after increasing depression and inability to contract for safety. 1. Continue current medications, Continue abilify to 5mg daily to target depression along with Remeron increase to 45mg at night. Restarted gender transition medications. Estrogen, DHT-Finasteride. Discussed in detail other care home options to target depression including Spravato and TMS. Patient unable to contract for safety if discharged to home. 2. Continue every 15 minute checks for safety. 3. Encourage individual, group and milieu therapies. 4. Retirement as disposition option? Involuntary Hold Information 96 Hour Hold: 96 Hour Involuntary Admission: No Attestations NPU Medical Necessity Statement*: Inpatient hospitalization is medically necessary and the clinically appropriate intervention at this time. We will monitor/initiate medications and make changes as indicated. Her likely length of stay is 4 to 6 days. Coding Level of Care Code Acute Code for g Fwd Diagnoses Generalized anxiety disorder with panic attacks F41.1; F41.0 Major depression, chronic F32.9 History of autism Z86.59
[2022-11-30 14:00] VITALS: BP 126/66; PULSE 86; RESP 18; TEMP 36.8; O2SAT 98
[2022-11-30 19:54] VITALS: BP 136/82; PULSE 80; RESP 18; TEMP 36.7; O2SAT 90
[2022-11-30] MEDS: mirtazapine 15 mg Tablet 45 MG PO (20:02)
[2022-12-01 06:00] VITALS: BP 103/66; PULSE 78; RESP 18; TEMP 36.6; O2SAT 99
[2022-12-01] MEDS: finasteride 5 mg Tablet 2.5 MG PO (08:59)
[2022-12-01] MEDS: estradiol 1 mg Tablet 3 MG PO (09:00)
[2022-12-01] MEDS: ARIPiprazole 10 mg Tablet 5 MG PO ×2 (09:00→14:54)
[2022-12-01] MEDS: docusate sodium 100 mg Capsule 200 MG PO (09:00)
[2022-12-01] MEDS: pantoprazole DR 40 mg Tablet PO (09:00)
[2022-12-01 14:00] VITALS: BP 150/86; PULSE 91; RESP 18; TEMP 36.7; O2SAT 98
--- NOTE | 2022-12-01 14:45 | P.NPUPN_ITS ---
Subjective NPU Subjective: Patient is a 22-year-old transfemale patient presented to the NPU with depression and suicidal ideation. The patient reported having some difficulties falling asleep. He had met with someone over the phone regarding potential placement in a senior care in [place]. He had reported that he had fleeting suicidal thoughts but had no active plans. He reported some continued feelings of hopelessness but stated that he had felt more optimistic about the idea of living apart from his parents. He had reported having considerable anxiety regarding finances but stated that he had been working on saving his money. Mental Status Exam MSE Comments: This is a overweight white transfemale in hospital scrubs on with limited grooming and poor eye contact. No abnormal movements other than moderate psychomotor retardation. He was cooperative with exam and appeared in less distress today. Speech was monotone with normal rate and volume. Mood described as okay. . Affect remained somewhat flat. Thought process was linear and organized. Thought content: Patient did not endorse any active suicidal or homicidal ideation today. She did not appear to be responding to internal stimuli. There was no evidence of overvalued ideas. There were no auditory or visual hallucinations reported at this time. Attention and concentration appeared adequate and within normal limits. She is alert and oriented x3. Insight was improving and judgment remains guarded. Impulse control also remains guarded. Vitals/I&O/Wt Last Vital Signs Temp 97.9 F 12/01/22 06:00 Pulse 78 12/01/22 06:00 Resp 18 12/01/22 06:00 BP 103/66 12/01/22 06:00 Pulse Ox 99 12/01/22 06:00 O2 Del Method Room Air 12/01/22 06:00 Data NPU 11/25/22 17:15 11/25/22 17:15 A&P Assessment and plan (1) Generalized anxiety disorder with panic attacks: (2) Major depression, chronic: (3) History of autism: Plan This is a 22-year-old white transfemale with a history of autism, depression and anxiety who presents again after increasing depression and inability to contract for safety. 1. Continue current medications, increase abilify to 10mg daily to target depression along with Remeron increase to 45mg at night. Restarted gender transition medications. Estrogen, DHT-Finasteride. Discussed in detail other terminal supervisor options to target depression including Spravato and TMS. We will work with patient on safety plan with the charge later tonight or tomorrow as patient does appear to be showing some evidence of improvement. 2. Continue every 15 minute checks for safety. 3. Encourage individual, group and milieu therapies. 4. Nursing Home as disposition option? Involuntary Hold Information 96 Hour Hold: 96 Hour Involuntary Admission: No Attestations NPU Medical Necessity Statement*: Inpatient hospitalization is medically necessary and the clinically appropriate intervention at this time. We will monitor/initiate medications and make changes as indicated. Her likely length of stay is 2-3 days. Coding Level of Care Code Acute Code for g Fwd Diagnoses Generalized anxiety disorder with panic attacks F41.1; F41.0 Major depression, chronic F32.9 History of autism Z86.59
[2022-12-01] MEDS: hyDROXYzine 25 mg Capsule 50 MG PO (14:54)
[2022-12-01] MEDS: mirtazapine 15 mg Tablet 45 MG PO (20:26)
[2022-12-01 22:00] VITALS: BP 131/87; PULSE 82; RESP 17; O2SAT 97
[2022-12-02 06:00] VITALS: BP 133/80; PULSE 96; RESP 17; TEMP 36.4; O2SAT 99
[2022-12-02] MEDS: finasteride 5 mg Tablet 2.5 MG PO (08:40)
[2022-12-02] MEDS: estradiol 1 mg Tablet 3 MG PO (08:40)
[2022-12-02] MEDS: ARIPiprazole 10 mg Tablet PO (08:40)
[2022-12-02] MEDS: pantoprazole DR 40 mg Tablet PO (08:40)
--- NOTE | 2022-12-02 13:53 | W.PM.NPUDCS ---
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 Chondroitin 550-30-1 mg Capsule 1 cap PO DAILY [id number] 18.8-187.5-93.8 mg Capsule 1 cap PO DAILY PRN (Reason: unknown) Discontinued trazodone 100 mg tablet 200 mg PO BEDTIME PRN (Reason: insomnia) Qty: 60 2RF escitalopram oxalate 10 mg tablet 10 mg PO DAILY 30 Days Qty: 30 2RF Rx Instructions: Take with 20 mg tab for total of 30 mg daily escitalopram oxalate 20 mg tablet 20 mg PO DAILY Qty: 30 2RF Discharge Orders: Discharge Order (Routine); Ordered 12/02/22 Ordered By: Lazaro Ramirez Referrals: [employer] [Other] (Call Anestasia Mora with [facility] for Insurance questions. ) [facility] [Other] - 12/09/22 12:00 pm (Scheduled with Taina for hospital follow up) [facility] [Other] Reginald Breen, [Primary Care Provider] - Discharge Diet: Usual diet Discharge Activity: Resume usual activity Patient Instructions: Mirtazapine (By mouth) (Remeron, Remeron Soltab), Aripiprazole (By mouth) (Abilify, Abilify Discmelt), Mood Disorders (ED), Depression (GEN), Opioid Safety Discharge Attestations NPU Time Spent in Discharge Care*: less than 30 min Specific Discharge Activities: Specific discharge activities: educating patient, documenting/other paperwork and evaluating patient/reviewing data Coding Level of Care Code Acute Chg FW DC note Diagnoses Generalized anxiety disorder with panic attacks F41.1; F41.0 Major depression, chronic F32.9 History of autism Z86.59
[2022-12-02 13:57] VITALS: BP 133/80; PULSE 96; RESP 17; TEMP 36.4; O2SAT 99
== END 2022-12-02 15:42 | disposition home or self-care (01) | DRG 881 ==
LOC: ER 17:29 → NP 11-26 05:52
PROVIDERS: Physician Assistant; Admitting Provider Psychiatry & Neurology Psychiatry; Emergency Provider Family Medicine; PCP Family Medicine; Visit Provider Psychiatry & Neurology Psychiatry
DX: F32.9 Major depressive disorder, single episode, unspecified (principal); R45.851 Suicidal ideations; F64.0 Transsexualism; F41.1 Generalized anxiety disorder; F41.0 Panic disorder [episodic paroxysmal anxiety]; F84.0 Autistic disorder
CPT/HCPCS: 36415; 80053; 80306; 80307; 81003; 85025; 97150; 97165; 99238; 99285; J8499